=== PATIENT | female | born 1930 | race Two or more races ===

== ENCOUNTER 2016-11-07 11:47 | Inpatient (IN) | payer MEDICARE, MEDICAID ==
[~2016-11-07] VITALS: Ht 165.1 cm; Wt 67.1 kg
--- NOTE | 2016-11-07 12:00 | NUR ---
BBPA FROM [facility] FOR ABDOMINAL PAIN, MOSTLY RLQ x 1 DAY. PATIENT IS AWAKE, HOWEVER CONFUSED. APPEARS IN NO APPARENT DISTRESS. RESPIRATION EVEN AND UNLABORED. SKIN IS WARM TO TOUCH AND NON DIAPHORETIC,. AFEBRILE. VSS
[2016-11-07 12:24] LABS: BASOPHILS # (AUTO) 0.6 /CMM (0.0-0.2); BASOPHILS % (AUTO) 4.3 % (0.0-2.0); BILIRUBIN,URINE Negative (NEGATIVE); BLOOD, URINE Moderate Ery/uL (NEGATIVE); COLOR,URINE Yellow (YELLOW); EOSINOPHILS % (AUTO) 0.1 % (0.0-6.0); HEMATOCRIT 47 % (33-45); HEMOGLOBIN 15.6 g/dL (11.5-14.8); KETONES,URINE Negative (NEGATIVE); LEUKOCYTE ESTERASE ,URINE Negative (NEGATIVE); LYMPHOCYTES # (AUTO) 0.7 /CMM (0.8-4.8); LYMPHOCYTES % (AUTO) 5.3 % (20.0-44.0); MEAN CORPUSCULAR HEMOGLOBIN 28 PG (26.0-33.0); MEAN CORPUSCULAR HGB CONC 33 g/dl (31.0-36.0); MEAN CORPUSCULAR VOLUME 86 fL (82-100); MONOCYTES # (AUTO) 1.3 /CMM (0.1-1.30); MONOCYTES % (AUTO) 9.7 % (2.0-12.0); NEUTROPHILS % (AUTO) 80.6 % (43.0-81.0); NITRITE, URINE Negative (NEGATIVE); PH,URINE 6.5 (5.0-8.0); PLATELET COUNT (AUTO) 255 /CMM (150-450); PROTEIN,URINE Negative (NEGATIVE); RDW COEFFICIENT OF VARIATION 13.7 (11.5-15.0); RED BLOOD CELL COUNT(AUTO) 5.53 MIL/uL (4.0-5.2); UGLUCOSE Negative (NEGATIVE); UROBILINOGEN,URINE 0.2 EU/dL (0.2); WHITE BLOOD COUNT (AUTO) 13.6 K/uL (4.3-11.0)
[2016-11-07 12:25] LABS: APPEARANCE,URINE SLIGHTLY HAZY (CLEAR)
--- NOTE | 2016-11-07 12:25 | NUR ---
URINE SAMPLE SENT TO LAB
[2016-11-07 12:32] LABS: CALCIUM, SERUM 8.6 mg/dL (8.5-10.1); CARBON DIOXIDE 30 mmol/L (21-32); CHLORIDE 101 mmol/L (98-107); CREATININE 1.3 mg/dL (0.6-1.3); GLUCOSE 118 mg/dL (74-106); POTASSIUM 3.9 mmol/L (3.5-5.1); SODIUM SERUM 138 mmol/L (136-145); UREA NITROGEN, BLOOD 24 mg/dL (7-18)
[2016-11-07 12:34] LABS: RBC,URINE 21-50 /HPF (0-2)
[2016-11-07 12:35] LABS: BACTERIA,URINE None seen /HPF (None Seen); SQUAMOUS EPITHELIAL CELL,UR Few /HPF (None Seen)
[2016-11-07 12:38] LABS: ALANINE AMINOTRANSFERASE 35 U/L (12-78); ALBUMIN 2.6 g/dL (3.4-5.0); ALKALINE PHOSPHATASE 115 U/L (46-116); ASPARTATE AMINOTRANSFERASE 34 U/L (15-37); BILIRUBIN,DIRECT 0.2 mg/dL (0.0-0.2); BILIRUBIN,TOTAL 0.5 mg/dL (0.2-1.0); LIPASE 82 U/L (73-393)
--- NOTE | 2016-11-07 13:35 | NUR ---
PT IS BACK FROM CT
[2016-11-07] MEDS ORDERED: VENL37.55 PO (13:36)
[2016-11-07] MEDS ORDERED: ACET-868 PO (13:36)
[2016-11-07] MEDS ORDERED: ASPI81TA2 PO (13:36)
[2016-11-07] MEDS ORDERED: AMLO2.5T2 PO (13:36)
[2016-11-07] MEDS ORDERED: OMEP20CA10 PO (13:36)
[2016-11-07] MEDS ORDERED: ATOR10TA PO (13:36)
[2016-11-07] MEDS ORDERED: MIRT15TA PO (13:36)
[2016-11-07] MEDS ORDERED: MAG30ORA PO (13:36)
[2016-11-07] MEDS ORDERED: ONDA4TAB5 PO (13:36)
[2016-11-07] MEDS ORDERED: CHOL100044 PO (13:36)
[2016-11-07] MEDS ORDERED: MAGN400O6 PO (13:36)
[2016-11-07] MEDS ORDERED: DEXT15DR6 EACHEYE (13:36)
[2016-11-07] MEDS ORDERED: SENN8.6T6 PO (13:37)
--- NOTE | 2016-11-07 15:15 | NUR ---
Patient is resting comfortably in bed with eyes closed. Easily aroused. VSS
--- NOTE | 2016-11-07 15:25 | NUR ---
REPORT GIVEN TO STEFAN PANDYA FOR DEVIKA
--- NOTE | 2016-11-07 15:50 | NUR ---
MS RN OPENING NOTES RECEIVED PATIENT FROM ER VIA GURNEY. PATIENT IN STABLE CONDITION, ALERT AND ORIENTED X 2-3, FAMILY AT BEDSIDE. NO ACUTE DISTRESS, NO SOB NOTED. DENIES ANY PAIN AT THE MOMENT. AWAITING FOR MD ADMITTING ORDERS. KEPT PATIENT SAFE AND COMFORTABLE. BED IN LOW POSITION, LOCKED, SIDERAILS UPX2, CALL LIGHT IN REACH. WILL CONTINUE TO MONITOR ACCORDINGLY.
[2016-11-07 16:00] VITALS: BP 120/70
[2016-11-07 18:09] LABS: TROPONIN I < 0.017 ng/mL (0.00-0.056)
--- NOTE | 2016-11-07 19:00 | NUR ---
RN NOTES DR LOZANO ON BEDSIDE, NEW ORDERS NOTED AND CARRIED OUT.
--- NOTE | 2016-11-07 19:10 | NUR ---
RN NOTES PATIENT ON BED RESTING. NO ACUTE DISTRESS, NO SOB NOTED. ALL NEEDS ATTENDED AND PROVIDED. KEPT PATIENT SAFE. ENDORSED TO SELF SEALING FUEL TANK REPAIRER RN FOR DEVIKA.
--- NOTE | 2016-11-07 19:30 | NUR ---
MS RN INITIAL NOTES PT RECEIVED IN BED, A/O X2-3 WITH MOMENTS OF CONFUSION. SO SIGNS OR SOB OR DISTRESS. ON 2L NC BREATHING EVENLY AND UNLABORED. IV ACCESS INTACT AND PATENT. D5 1/2 NS WAS STARTED AT 50 ML/HR. PT IS NPO. COMPLAINTS OF NAUSEA, ZOFRAN IS TO BE GIVEN. BED IS IN LOW AND LOCKED POSITION, CALL LIGHT WITHIN REACH. WILL CONTINUE TO MONITOR PT.
[2016-11-07 20:00] VITALS: BP 151/94
[2016-11-07 20:14] LABS: AMYLASE 38 U/L (25-115); LIPASE 79 U/L (73-393)
--- NOTE | 2016-11-08 06:16 | NUR ---
MS RN CLOSING NOTES PT IS IN BED A/O X 2 FORGETFUL, WATCHING TV. PT IS BREATHING EVENLY AND UNLABORED ON NC 2L. NO SIGNS OF SOB OR DISTRESS. NPO STATUS MAINTAINED. BED IS IN LOW AND LOCKED POSITION, CALL LIGHT WITHIN REACH. WILL ENDORSE TO DAY SHIFT
--- NOTE | 2016-11-08 07:20 | NUR ---
RN OPENING NOTES RECEIVED PATIENT IN BED SLEEPING, AROUSES EASILY, A/O X2-3 WITH MOMENTS OF CONFUSION. NO ACUTE DISTRESS, NO SOB NOTED. ON 2L NC BREATHING EVENLY AND UNLABORED. IV ACCESS INTACT AND PATENT WITH D5 1/2 NS AT 50 ML/HR INFUSING. BED IN LOW AND LOCKED POSITION, CALL LIGHT WITHIN REACH. WILL CONTINUE TO MONITOR ACCORDINGLY.
[2016-11-08 07:35] LABS: BASOPHILS % (AUTO) 0.2 % (0.0-2.0); EOSINOPHILS % (AUTO) 0.1 % (0.0-6.0); HEMATOCRIT 44 % (33-45); HEMOGLOBIN 14.2 g/dL (11.5-14.8); LYMPHOCYTES # (AUTO) 0.7 /CMM (0.8-4.8); LYMPHOCYTES % (AUTO) 6.1 % (20.0-44.0); MEAN CORPUSCULAR HEMOGLOBIN 28 PG (26.0-33.0); MEAN CORPUSCULAR HGB CONC 32 g/dl (31.0-36.0); MEAN CORPUSCULAR VOLUME 87 fL (82-100); MONOCYTES # (AUTO) 1.3 /CMM (0.1-1.30); MONOCYTES % (AUTO) 11.4 % (2.0-12.0); NEUTROPHILS # (AUTO) 9.4 /CMM (1.8-8.9); NEUTROPHILS % (AUTO) 82.2 % (43.0-81.0); PLATELET COUNT (AUTO) 244 /CMM (150-450); RDW COEFFICIENT OF VARIATION 14.8 (11.5-15.0); RED BLOOD CELL COUNT(AUTO) 5.01 MIL/uL (4.0-5.2); WHITE BLOOD COUNT (AUTO) 11.4 K/uL (4.3-11.0)
[2016-11-08 08:00] VITALS: BP 146/65
[2016-11-08 08:06] LABS: ALBUMIN 2.3 g/dL (3.4-5.0); CALCIUM, SERUM 8.4 mg/dL (8.5-10.1); CARBON DIOXIDE 27 mmol/L (21-32); CHLORIDE 107 mmol/L (98-107); CREATININE 1.2 mg/dL (0.6-1.3); GLUCOSE 116 mg/dL (74-106); POTASSIUM 4.3 mmol/L (3.5-5.1); SODIUM SERUM 143 mmol/L (136-145); UREA NITROGEN, BLOOD 25 mg/dL (7-18)
[2016-11-08 08:10] LABS: CHOLESTEROL 176 mg/dL (<200); HDL CHOLESTEROL 60 mg/dL (40-60); LDL 94 mg/dL (0-99); PREALBUMIN 11.1 MG/DL (18.0-35.7); TRIGLYCERIDES 61 mg/dL (30-150)
[2016-11-08 16:00] VITALS: BP_SYST 149; BP_SYST 160; BP_DIAS 89
--- NOTE | 2016-11-08 16:00 | NUR ---
RN NOTES FLEET ENEMA GIVEN ORDERED, NO BM NOTED. WILL CONTINUE TO MONITOR ACCORDINGLY.
--- NOTE | 2016-11-08 19:30 | NUR ---
RN NOTES PATIENT IN BED RESTING. NO ACUTE DISTRESS, NO SOB NOTED. NO S/S OF PAIN OR DISCOMFORT. ALL NEEDS ATTENDED AND PROVIDED. KEPT PATIENT SAFE AND COMFORTABLE. BED IN LOW POSITION, LOCKED, SIDERAILS UP X2. CALL LIGHT IN REACH. ENDORSED TO CATALYST CONCENTRATION OPERATOR RN FOR DEVIKA.
--- NOTE | 2016-11-08 19:30 | NUR ---
MS RN INITIAL NOTES PT RECEIVED IN BED, A/O X2-3 WITHDRAWN, STATING THAT I TOOK HER CHILDREN AWAY FROM HER. NO SIGNS OR SOB OR DISTRESS. HAS NASAL CANULA IN HER HAND AND WONT LET GO, NEW ONE TO BE GIVEN. IV ACCESS INTACT AND PATENT. WITH D5 1/2 NS AT 50 ML/HR. PT IS NOW ON CLEAR LIQUIDS. BED IS IN LOW AND LOCKED POSITION, CALL LIGHT WITHIN REACH. WILL CONTINUE TO MONITOR PT.
[2016-11-08 20:00] VITALS: BP 142/95
[2016-11-08 20:03] VITALS: BP 142/95
--- NOTE | 2016-11-09 06:15 | NUR ---
MS RN CLOSING NOTES PT IS IN BED A/O X 1 FORGETFUL. PT IS BREATHING EVENLY AND UNLABORED ON NC 2L. NO SIGNS OF SOB OR DISTRESS. NOW ON A CLEAR LIQUID DIET. BED IS IN LOW AND LOCKED POSITION, CALL LIGHT WITHIN REACH. WILL ENDORSE TO DAY SHIFT
--- NOTE | 2016-11-09 07:13 | NUR ---
MS RN OPENING NOTE RECEIVED REPORT ON TH PATIENT. PATIENT IS RESTING IN BED COMFORTABLY WITH THE EYES CLOSED. BED IS LOCKED, IN LOWEST POSITION, SIDE RAILS UP X 3, BD ALARM IS ON. PRESENTS WITH NON-LABORED BREATHING ON 2 L O2. WILL RETURN TO REASSESS.
[2016-11-09 08:00] VITALS: BP 129/87
--- NOTE | 2016-11-09 11:22 | NUR ---
MS RN NOTE DVT PUMPS ORDERED AND DELIVERED FROM [facility]. ATTEMPTED TO PLACE ON THE PATIENT. PATIENT REFUSED. SCDS AT THE BEDSIDE. WILL ATTEMPT AGAIN LATER.
--- NOTE | 2016-11-09 12:50 | NUR ---
MS RN NOTE PLACED SCDs ON. PATIENT COMPLIED.
--- NOTE | 2016-11-09 12:51 | NUR ---
MS RN NOTE DR. LOZANO AT THE BEDSIDE. RN REPORTED TO MD THE POOR APPETITE STATUS AND PATIENT'S REFUSAL TO EAT. GASTROINTEROLOGY CONSULT WITH DR. HINTON AND ST DORCAS SORENSON ORDERED BY DR. LOZANO.
--- NOTE | 2016-11-09 15:21 | NUR ---
WOUND CARE CONSULT: PT PRESENTS WITH INTACT SKIN AND INCONTINENCE. RECOMMENDATIONS MADE FOR SKIN PROTECTION. DISCUSSED WITH NURSING STAFF. PT ON EDITH ISOFLEX LOW AIRLOSS BED. ALL SKIN PROTECTION MEASURES IN PLACE. WILL SEE PRN. IN AGREEMENT WITH PLAN OF CARE.
[2016-11-09 16:59] VITALS: BP 142/86
--- NOTE | 2016-11-09 18:45 | NUR ---
MS RN CLOSING NOTE PATIENT IS RESTING IN BED COMFORTABLY WITH EYES CLOSED. BED IS LOCKED IN LOWEST POSITION, SIDE RAILS UP X3 BED ALARM ON. IC FLUIDS RUNNING ORDERED. PATIENT'S VS WNL. DENIES PAIN AT THIS TIME. WILL ENDORSE TO TO YARN HANDLER FO DEVIKA.
[2016-11-09 18:58] VITALS: BP 142/86
--- NOTE | 2016-11-09 19:40 | NUR ---
MS RN INITIAL NOTES PT RECEIVED IN BED, A/O X2-3 WITHDRAWN, SLEEPING BUT EASILY AROUSED. NO SIGNS OR SOB OR DISTRESS. IV ACCESS INTACT AND PATENT. WITH D5 1/2 NS AT 50 ML/HR. PT IS NOW ON CLEAR LIQUIDS. BED IS IN LOW AND LOCKED POSITION, CALL LIGHT WITHIN REACH. WILL CONTINUE TO MONITOR PT.
[2016-11-09 20:00] VITALS: BP 137/82
--- NOTE | 2016-11-09 20:20 | NUR ---
TEMP 100.3. COOLING MEASURES WERE INITIATED. HR 144. PLACED ON TELE MONITOR FOR OBSERVATION
--- NOTE | 2016-11-09 21:00 | NUR ---
PT REFUSING TO TAKE ALL HER MEDS AFTER THEY HAVE BEEN CRUSHED IN APPLE SAUCE
--- NOTE | 2016-11-09 21:25 | NUR ---
PT TEMP REMAINS THE SAME. DR. LOZANO WAS CONTACTED. CHEST XRAY, BLOOD AND URINE CULTURE ORDERED.
--- NOTE | 2016-11-09 22:00 | NUR ---
CHEST XRAY COMPLETE
--- NOTE | 2016-11-09 22:31 | NUR ---
BLOOD CULTURE COLLECTED
--- NOTE | 2016-11-09 23:03 | NUR ---
URINE SAMPLE COLLECTED VIA STRAIGHT CATH
--- NOTE | 2016-11-10 06:13 | NUR ---
MS RN CLOSING NOTES PT IS IN BED A/O X 1 FORGETFUL. PT IS BREATHING EVENLY AND UNLABORED ON NC 2L. NO SIGNS OF SOB OR DISTRESS. NPO DUE TO POSSIBLE PROCEDURE. BED IS IN LOW AND LOCKED POSITION, CALL LIGHT WITHIN REACH. WILL ENDORSE TO DAY SHIFT
--- NOTE | 2016-11-10 07:20 | NUR ---
RN NOTES PT IS IN BED A/O X 1 FORGETFUL, CONFUSED EASILY AROUSABLE DURING CARE, ABLE TO MAKE NEEDS KNOWN. RESPIRATIONS EVEN AND UNLABORED. NO SIGNS OF SOB OR DISTRESS. NO APPARENT PAIN OR DISCOMFORT NOTED, NO FACIAL GRIMACING OR GUARDED MOVEMENT NOTED. NPO DUE TO POSSIBLE PROCEDURE. BED IS IN LOW AND LOCKED POSITION, CALL LIGHT WITHIN REACH. WILL CONTINUE TO MONITOR
[2016-11-10 08:00] VITALS: BP 152/95
[2016-11-10 08:10] LABS: CANCER AG, 125 90.5 U/mL (0.0-38.1); CARCINOEMBRYONIC AG (CEA) 3.5 ng/mL (0.0-4.7)
--- NOTE | 2016-11-10 10:09 | NUR ---
RN NOTES PLACED CALL TO DR. AGEE, PT ON SENIOR ENERGY MARKET COORDINATOR FOR OBSERVATION, NOTED WITH UNCONTROLLED AFIB HR IN 150'S, WILL AWAIT CALL BACK FOR FURTHER ORDERS
--- NOTE | 2016-11-10 10:56 | NUR ---
RN NOTES CALLED DR. AGEE TO NOTIFY OF CONTINUED UNCONTROLLED AFIB HR IN 150'S WILL CONTINUE TO MONITOR AT THIS TIME AND AWAIT ANY FURTHER ORDERS
[2016-11-10 12:23] VITALS: BP 134/85
--- NOTE | 2016-11-10 12:35 | NUR ---
RN NOTES BLADDER SCAN DONE NOTED WITH >941 ML, STRAIGHT CATH DONE 650CC OUT WILL CONTINUE TO MONITOR FOR URINARY RETENTION ORDERED Addendum: 11/10/16 at 1306 by ABISAI SHER RN Amended: Links added.
[2016-11-10 13:11] VITALS: BP 111/70
--- NOTE | 2016-11-10 13:43 | NUR ---
RN NOTES SEEN AND EXAMINED BY DR. AGEE, NOTIFIED OF RESIDUAL AMOUNT OF STRAIGHT CATH, PER MD CONTINUE TO MONITOR
[2016-11-10 16:00] VITALS: BP 146/78
--- NOTE | 2016-11-10 18:48 | NUR ---
RN NOTES BLADDER SCAN DONE ORDERED RESIDUAL NOTED >667 CC, STRAIGHT CATH DONE ORDERED NOTED WITH 670 CC OF DARK CLOUDY URINE, AWARE, PT TO CONTINUE TO HAVE BLADDER SCAN Q6H NO BURGESS CATHETER AT THIS TIME PER DR. AGEE, WILL CONTINUE TO MONITOR FOR URINARY RETENTION AND ENDORSE TO NEXT SHIFT FOR CONTINUITY OF CARE Addendum: 11/10/16 at 1850 by ABISAI SHER RN Amended: Links added.
--- NOTE | 2016-11-10 19:30 | NUR ---
TELERN HALFLY AWAKE, FAMILY AT BEDSIDE. SR ON THE MONITOR. NO SOB . SATURATION ON RA 95%. SPOKE TO FAMILY REGARDING PLAN OF CARE AND MEDICATION REGIMEN. NOT AWARE EGD WAS CANCELLED TODAY SECONDARY TO CHANGE OF MEDICAL STATUS. NO ORDER YET TO WHEN EGD WILL BE, FAMILY WANTS TO BE NOTIFIED. V/S STABLE, NO NEEDS FOR NOW. CONTINUED MONITORING.
--- NOTE | 2016-11-10 19:30 | NUR ---
RN NOTES PT IS IN BED A/O X 1 FORGETFUL, CONFUSED EASILY AROUSABLE DURING CARE, ABLE TO MAKE NEEDS KNOWN. RESPIRATIONS EVEN AND UNLABORED. NO SIGNS OF SOB OR DISTRESS. NO APPARENT PAIN OR DISCOMFORT NOTED, NO FACIAL GRIMACING OR GUARDED MOVEMENT NOTED. PATIENT MONITORED FOR URINARY RETENTION ORDERED, ENDORSED TO NEXT SHIFT ORDERED.PT ON MEAT CLERK ORDERED NOTED WITH SINUS RHYTHM HR 74. BED IS IN LOW AND LOCKED POSITION, CALL LIGHT WITHIN REACH. ENDORSED TO NEXT SHIFT FOR CONTINUITY OF CARE
[2016-11-10 20:00] VITALS: BP_SYST 123; BP_SYST 126; BP_DIAS 83
--- NOTE | 2016-11-10 22:15 | NUR ---
TELERN EASILY AROUSABLE, DUE MEDS ADMINISTERED. NO DIFFICULTY SWALLOWING. ABLE TO COMMUNICATE ALTHOUGH LIMITED. HOB 45 DEGREES AT ALL TIMES. REPOSITIONED FOR COMFORT. OUTPUT MONITORED. PRESENT IVF INFUSING WELL. LEVAQUIN IVPB STARTED.
[2016-11-11] VITALS: BP 118/79
--- NOTE | 2016-11-11 00:35 | NUR ---
TELERN I/O CATH 450 OUT. REMAINS SR ON THE MONITOR
[2016-11-11 04:00] VITALS: BP 117/61
[2016-11-11 04:19] VITALS: BP 117/61
--- NOTE | 2016-11-11 06:00 | NUR ---
TELERN HAD GOOD AMOUNT OF SLEEP. BLADDER SCAN 450 IN AN OUT CATH WAS 500.
--- NOTE | 2016-11-11 07:27 | NUR ---
RN NOTES PATIENT AWAKE ALERT AND VERBALLY RESPONSIVE ABLE TO MAKE NEEDS KNOWN. RESPIRATIONS EVEN AND UNLABORED, CONTINUES ON PAIN MANAGEMENT WITH EFFECTIVENESS. IV ACCESS PATENT AND INTACT NO REDNESS OR INFILTRATION NOTED. PATIENT COMFORTABLE, CALL LIGHT WITHIN EASY REACH, WILL CONTINUE TO MONITOR
[2016-11-11 07:43] LABS: BASOPHILS % (AUTO) 0.3 % (0.0-2.0); EOSINOPHILS # (AUTO) 0.1 /CMM (0.0-0.7); EOSINOPHILS % (AUTO) 1.7 % (0.0-6.0); HEMATOCRIT 41 % (33-45); HEMOGLOBIN 13.2 g/dL (11.5-14.8); LYMPHOCYTES # (AUTO) 1.2 /CMM (0.8-4.8); LYMPHOCYTES % (AUTO) 15.1 % (20.0-44.0); MEAN CORPUSCULAR HEMOGLOBIN 28 PG (26.0-33.0); MEAN CORPUSCULAR HGB CONC 33 g/dl (31.0-36.0); MEAN CORPUSCULAR VOLUME 87 fL (82-100); MONOCYTES # (AUTO) 0.9 /CMM (0.1-1.30); MONOCYTES % (AUTO) 11.6 % (2.0-12.0); NEUTROPHILS # (AUTO) 5.8 /CMM (1.8-8.9); NEUTROPHILS % (AUTO) 71.3 % (43.0-81.0); PLATELET COUNT (AUTO) 257 /CMM (150-450); RDW COEFFICIENT OF VARIATION 14.6 (11.5-15.0); RED BLOOD CELL COUNT(AUTO) 4.69 MIL/uL (4.0-5.2); WHITE BLOOD COUNT (AUTO) 8.1 K/uL (4.3-11.0)
[2016-11-11 08:00] VITALS: BP 124/69
--- NOTE | 2016-11-11 12:38 | NUR ---
RN NOTES BLADDER SCAN DONE ORDERED. NOTED WITH RESIDUAL OF >617 CC. STRAIGHT CATH DONE PER MD ORDER. NOTED WITH OUTPUT WITH 600CC. WILL CONTINUE TO MONITOR FOR URINARY RETENTION AND NOTIFY MD. Addendum: 11/11/16 at 1241 by TAE LEWIS RN Amended: Links added.
--- NOTE | 2016-11-11 13:56 | NUR ---
RN NOTES PATIENT SEEN AND EVALUATED BY DR AGEE, PER DR. AGEE TO CONTINUE INTERMITTENT CATHETERIZATION NO BURGESS CATHETER, NOTIFIED MD OF NEED TO CATHETERIZATION Q6H X24 HOURS PER MD NO BURGESS CATHETER AT THIS TIME WILL CONTINUE TO MONITOR FOR URINARY RETENTION ORDERED
[2016-11-11 16:00] VITALS: BP 124/76
--- NOTE | 2016-11-11 18:48 | NUR ---
RN NOTE BLADDER SCAN DONE NOTED WITH RESIDUAL OF > 375CC, STRAIGHT CATH ORDERED PER , 320C OUTPUT NOTED, WILL CONTINUE TO MONITOR FOR URINARY RETENTION ORDERED Addendum: 11/11/16 at 1849 by ABISAI SHER RN Amended: Links added.
--- NOTE | 2016-11-11 19:25 | NUR ---
RN NOTES PT IS IN BED A/O X 1 FORGETFUL, CONFUSED EASILY AROUSABLE DURING CARE, ABLE TO MAKE NEEDS KNOWN. RESPIRATIONS EVEN AND UNLABORED. NO SIGNS OF SOB OR DISTRESS. NO APPARENT PAIN OR DISCOMFORT NOTED, NO FACIAL GRIMACING OR GUARDED MOVEMENT NOTED. PATIENT MONITORED FOR URINARY RETENTION ORDERED, ENDORSED TO NEXT SHIFT ORDERED. BED IS IN LOW AND LOCKED POSITION, CALL LIGHT WITHIN REACH. ENDORSED TO NEXT SHIFT FOR CONTINUITY OF CARE
--- NOTE | 2016-11-11 19:30 | NUR ---
MS RN INITIAL NOTES PT RECEIVED IN BED, A/O X2-3 VERY FORGETFUL, SLEEPING BUT EASILY AROUSED. NO SIGNS OR SOB OR DISTRESS. IV ACCESS INTACT AND PATENT. WITH D5 1/2 NS AT 50 ML/HR. PT IS NOW ON PUREED. BED IS IN LOW AND LOCKED POSITION, CALL LIGHT WITHIN REACH. WILL CONTINUE TO MONITOR PT.
[2016-11-11 20:00] VITALS: BP 122/75
--- NOTE | 2016-11-12 | NUR ---
MS RN NOTES BLADDER SCAN WAS DONE-- 700 CC WAS REMOVED VIA STRAIGHT CATH
--- NOTE | 2016-11-12 06:00 | NUR ---
MS RN NOTES BLADDER SCAN SHOWED 923 CC- 900 CC WAS REMOVED VIA STRAIGHT CATH
--- NOTE | 2016-11-12 07:41 | NUR ---
MS/RN OPENING NOTE PATIENT RECEIVED IN BED IN STABLE CONDITION. ALERT AND ORIENTED TIMES 2. ABLE TO MAKES NEEDS KNOWN. NO SIGNS OF ACUTE DISTRESS. NO COMPLAIN OF PAIN OR DISCOMFORT. ALL NEEDS ATTENDED TO. CALL LIGHT WITHIN REACH. WILL CONTINUE TO MONITOR TO ENSURE SAFETY.
--- NOTE | 2016-11-12 07:53 | NUR ---
MS RN CLOSING NOTES PT IS IN BED CONFUSED. NO SIGNS OF SOB OR DISTRESS. BLADDER SCANS WERE PERFORMED. IV WAS PULLED OUT AT THE CHANGE OF SHIFT, ENDORSED TO AM SHIFT. MOM WAS ADMINISTERED. BED IS IN LOW AND LOCKED POSITION, CALL LIGHT IS WITHIN REACH. WILL ENDORSE TO DAY SHIFT
[2016-11-12 08:00] VITALS: BP 133/92
--- NOTE | 2016-11-12 15:26 | NUR ---
MS/RN SEEN BY DR JENIFFER TIPTON PATIENT SEEN BY DR SWIFT WITH ORDER TO INSERT BURGESS CATHETER. TOLERATED WELL.
[2016-11-12 16:00] VITALS: BP 130/89
--- NOTE | 2016-11-12 17:48 | NUR ---
MS/RN YADIRA PATIENT REFUSED ELIQUIS AT 5PM. DR AGEE AWARE, DR AGEE SPOKE WITH PATIENT AND AGREES TO TAKE ELIQUIS.
--- NOTE | 2016-11-12 18:21 | NUR ---
MS/RN CLOSING NOTE PATIENT IN BED, AWAKE IN STABLE CONDITION. ALERT AND ORIENTED TIMES 1-2. NOTED WITH EPISODES OF CONFUSION. NO SIGNS OF ACUTE DISTRESS. NO COMPLAIN OF PAIN OR DISCOMFORT. ALL NEEDS ATTENDED TO. CALL LIGHT WITHIN REACH. WILL ENDORSE TO NEXT SHIFT FOR CONTINUITY OF CARE.
--- NOTE | 2016-11-12 19:15 | NUR ---
MS?ASPHALT DISTRIBUTOR OPERATOR; RECEIVED PT 'S REPORTS FROM THE DAY SHIFT RN FOR CONTINUITY OF CARE. PT AT THIS TIME IN BED AWAKE ABLE TO TALK BUT WITH CONFUSION. WITH O2 2L NC ON. BREATHING NON LABORED. WITH FC INTACT WITH YELLOW URINE COLOR. IVF OF 1/2 NS AT 50 ML PER HOUR ON PROGRESS. BED ON LOWER POSITION AND LOCKED FOR SAFETY. SIDE RAILS ARE UP FOR SAFETY. CALL LIGHT WITHIN REACH.
[2016-11-12 20:00] VITALS: BP 129/81
--- NOTE | 2016-11-13 05:15 | NUR ---
MS/COPYWRITER; PT PULLED OUT IV . NEW HL INSERTED ON LFA # 22 IVF RESUMED.
--- NOTE | 2016-11-13 07:00 | NUR ---
MS/NURSING CARE PARTNER; CHARGE NURSE MADE AWARE OF TH FC. AND SHE SAID TO REMOVE IT. FC DC AT 0600 WITH 750 ML YELLOW BUT CLOUDY. WILL ENDORSE TO THE DAY SHIFT NURSE.
--- NOTE | 2016-11-13 07:15 | NUR ---
MS RN OPENING NOTES RECEIVED PT FROM NIGHTSHIFT NURSE IN STABLE CONDITION. PT IS A/O X1 AND CONFUSED. NO SOB OR SIGNS OF DISTRESS NOTED. BREATHING IS EVEN AND UNLABORED. PT DENIES ANY PAIN AT THIS TIME. NO NAUSEA OR VOMITING REPORTED DURING THE NIGHT. BURGESS CATHETER WAS REMOVED THIS MORNING BY THE BULLET CASTING OPERATOR NURSE. THERE WAS A REPORTED 750CC OUTPUT FROM THE CATHETER. IV PRESENT ON LEFT AC 22G, INFUSING 1/2 NS @50ML/HR. PT IS TOLERATING INFUSION WELL. NO REDNESS OR SIGNS OF INFILTRATION NOTED. BED IN LOW LOCKED POSITION, SIDE RAILS UP X3, CALL LIGHT WITHIN REACH. WILL CONTINUE TO MONITOR
[2016-11-13 07:38] LABS: BASOPHILS % (AUTO) 0.6 % (0.0-2.0); EOSINOPHILS # (AUTO) 0.2 /CMM (0.0-0.7); EOSINOPHILS % (AUTO) 2.5 % (0.0-6.0); HEMATOCRIT 43 % (33-45); HEMOGLOBIN 14.1 g/dL (11.5-14.8); LYMPHOCYTES % (AUTO) 15.2 % (20.0-44.0); MEAN CORPUSCULAR HEMOGLOBIN 29 PG (26.0-33.0); MEAN CORPUSCULAR HGB CONC 33 g/dl (31.0-36.0); MEAN CORPUSCULAR VOLUME 87 fL (82-100); MONOCYTES # (AUTO) 0.9 /CMM (0.1-1.30); MONOCYTES % (AUTO) 12.6 % (2.0-12.0); NEUTROPHILS # (AUTO) 4.7 /CMM (1.8-8.9); NEUTROPHILS % (AUTO) 69.1 % (43.0-81.0); PLATELET COUNT (AUTO) 366 /CMM (150-450); RDW COEFFICIENT OF VARIATION 14.6 (11.5-15.0); RED BLOOD CELL COUNT(AUTO) 4.92 MIL/uL (4.0-5.2); WHITE BLOOD COUNT (AUTO) 6.8 K/uL (4.3-11.0)
[2016-11-13 07:41] LABS: CARBON DIOXIDE 31 mmol/L (21-32); CHLORIDE 103 mmol/L (98-107); CREATININE 0.8 mg/dL (0.6-1.3); GLUCOSE 89 mg/dL (74-106); POTASSIUM 3.3 mmol/L (3.5-5.1); SODIUM SERUM 141 mmol/L (136-145); UREA NITROGEN, BLOOD 10 mg/dL (7-18)
[2016-11-13 08:00] VITALS: BP 139/87
[2016-11-13 16:00] VITALS: BP 146/89
--- NOTE | 2016-11-13 18:20 | NUR ---
requested patient discharge back to [facility] [phone], spoke with admissions and faxed clinicals,SNF is aware of contact isolation ESBL urine.Patient accepted and ambulance pick up driver arranged for 7pm . Addendum: 11/13/16 at 2208 by STEVEN MONROE RN Amended: Links added.
--- NOTE | 2016-11-13 19:55 | NUR ---
MS DRAW FRAME TENDER NOTES PT WAS DISCHARGED FROM THE FACILITY IN STABLE CONDITION. PT LEFT VIA AMBULANCE TRANSPORT AND WAS TAKEN TO [facility]. REPORT WAS GIVEN TO JIE THE NURSING FORESTRY TECHNICAL OFFICER. DISCHARGE INSTRUCTIONS WERE DISCUSSED WITH JIE, SHE WAS ALSO INFORMED THAT THE PT WILL BE LEAVING WITH HER FC WHICH WAS PLACED TODAY DUE TO URINARY RETENTION. BURGESS CATHETER WAS PLACED PER HOSPITAL PROTOCOL. ALL DISCHARGE PAPERWORK WERE SIGNED BY MYSELF AND A FELLOW RN DUE TO PT'S MENTAL STATUS. PT'S BELONGINGS WERE SENT WITH AMBULANCE STAFF. ALL NEEDS WERE MET DURING SHIFT AND ORDERS CARRIED OUT ACCORDINGLY.
== END 2016-11-13 19:36 | DRG 388 ==
LOC: ER 11:48 → MED 15:17 → TELE 11-10 20:25 → MED 11-11 08:45
PROVIDERS: ADMIT Internal Medicine Hematology & Oncology; ATTEND Internal Medicine
DX: K56.41 Fecal impaction (principal); G93.40 Encephalopathy, unspecified; I48.92 Unspecified atrial flutter; N13.30 Unspecified hydronephrosis; F33.9 Major depressive disorder, recurrent, unspecified; G30.9 Alzheimer's disease, unspecified; F02.80 Dementia in other diseases classified elsewhere, unspecified severity, without behavioral disturbance, psychotic disturbance, mood disturbance, and anxiety; N13.4 Hydroureter; I48.0 Paroxysmal atrial fibrillation; R62.7 Adult failure to thrive; N28.1 Cyst of kidney, acquired; E78.5 Hyperlipidemia, unspecified; I25.10 Atherosclerotic heart disease of native coronary artery without angina pectoris; D72.829 Elevated white blood cell count, unspecified; M19.90 Unspecified osteoarthritis, unspecified site; Z87.891 Personal history of nicotine dependence; K44.9 Diaphragmatic hernia without obstruction or gangrene; I10 Essential (primary) hypertension; R19.09 Other intra-abdominal and pelvic swelling, mass and lump; R91.1 Solitary pulmonary nodule; R33.9 Retention of urine, unspecified; Z79.899 Other long term (current) drug therapy
CPT/HCPCS: 36415; 71010-TC; 76856-TC; 80048-TC; 80061-TC; 80076-TC; 81000-TC; 82040-TC; 82150-TC; 82378; 83690-TC; 83735-TC; 84100-TC; 84134-TC; 84443-TC; 84484-TC; 85025-TC; 86304; 87040-TC; 87081-TC; 87086-TC; 87186-TC; 92526; 92611-TC; 93307-TC; A4216; A4606; J1956; J2270; J2405; J3490; J7030; J7042; Q9967; Z7610

== ENCOUNTER 2016-11-20 10:51 | Inpatient (IN) | payer MEDICARE, MEDICAID ==
[~2016-11-20] VITALS: Ht 165.1 cm; Wt 54.0 kg
[~2016-11-20 10:51] MED LIST: ACET-868 PO; AMLO2.5T2 PO; ASPI81TA2 PO; ATOR10TA PO; CHOL100044 PO; DEXT15DR6 EACHEYE; MAG30ORA PO; MAGN400O6 PO; MIRT15TA PO; OMEP20CA10 PO; ONDA4TAB5 PO; SENN8.6T6 PO; VENL37.55 PO
--- NOTE | 2016-11-20 11:00 | NUR ---
PT BIBRA FROM SNF TO ER BED 14. PER REPORT, HERE FOR URINE RETENSION AND UTI. PT IS C/O "WEAKNESS." GOWNED AND PLACED ON MONITOR. STABLE VITALS AWAITING MD SORENSON.
--- NOTE | 2016-11-20 11:04 | NUR ---
DR HANNA AT BEDSIDE FOR EVAL.
--- NOTE | 2016-11-20 11:27 | NUR ---
RADIOLOGY AT BEDSIDE FOR PSYCH EVAL.
[2016-11-20 11:29] LABS: BASOPHILS # (AUTO) 0.1 /CMM (0.0-0.2); BASOPHILS % (AUTO) 0.6 % (0.0-2.0); EOSINOPHILS # (AUTO) 0.2 /CMM (0.0-0.7); EOSINOPHILS % (AUTO) 2.4 % (0.0-6.0); HEMATOCRIT 42 % (33-45); HEMOGLOBIN 13.9 g/dL (11.5-14.8); LYMPHOCYTES # (AUTO) 0.9 /CMM (0.8-4.8); LYMPHOCYTES % (AUTO) 9.5 % (20.0-44.0); MEAN CORPUSCULAR HEMOGLOBIN 28 PG (26.0-33.0); MEAN CORPUSCULAR HGB CONC 33 g/dl (31.0-36.0); MEAN CORPUSCULAR VOLUME 86 fL (82-100); MONOCYTES # (AUTO) 0.6 /CMM (0.1-1.30); MONOCYTES % (AUTO) 6.6 % (2.0-12.0); NEUTROPHILS # (AUTO) 7.7 /CMM (1.8-8.9); NEUTROPHILS % (AUTO) 80.9 % (43.0-81.0); PLATELET COUNT (AUTO) 521 /CMM (150-450); RDW COEFFICIENT OF VARIATION 13.7 (11.5-15.0); WHITE BLOOD COUNT (AUTO) 9.5 K/uL (4.3-11.0)
[2016-11-20] MEDS ORDERED: FAMO20TA8 PO (11:33)
[2016-11-20] MEDS ORDERED: ACET-868 PO (11:33)
[2016-11-20] MEDS ORDERED: POLY15DR40 EACHEYE (11:33)
[2016-11-20] MEDS ORDERED: HYDR-3326 PO (11:33)
[2016-11-20] MEDS ORDERED: NA P133E RC (11:33)
[2016-11-20] MEDS ORDERED: APIX2.5T PO (11:33)
[2016-11-20] MEDS ORDERED: DILT180C66 PO (11:33)
[2016-11-20 11:40] LABS: CALCIUM, SERUM 8.1 mg/dL (8.5-10.1); CARBON DIOXIDE 32 mmol/L (21-32); CHLORIDE 109 mmol/L (98-107); CREATININE 1.1 mg/dL (0.6-1.3); GLUCOSE 70 mg/dL (74-106); POTASSIUM 3.8 mmol/L (3.5-5.1); SODIUM SERUM 143 mmol/L (136-145); UREA NITROGEN, BLOOD 14 mg/dL (7-18)
[2016-11-20 11:43] LABS: INR 1.09 (0.87-1.13); PROTHROMBIN TIME 11.4 SECS (9.5-12.7)
[2016-11-20 11:46] LABS: ALANINE AMINOTRANSFERASE 36 U/L (12-78); ALBUMIN 2.3 g/dL (3.4-5.0); ALKALINE PHOSPHATASE 108 U/L (46-116); ASPARTATE AMINOTRANSFERASE 25 U/L (15-37); BILIRUBIN,DIRECT 0.1 mg/dL (0.0-0.2); BILIRUBIN,TOTAL 0.2 mg/dL (0.2-1.0); TOTAL PROTEIN, SERUM 6.3 g/dL (6.4-8.2)
[2016-11-20 11:48] LABS: TROPONIN I < 0.017 ng/mL (0.00-0.056)
[2016-11-20 11:55] LABS: APPEARANCE,URINE Turbid (CLEAR); BILIRUBIN,URINE Negative (NEGATIVE); BLOOD, URINE Moderate Ery/uL (NEGATIVE); COLOR,URINE Yellow (YELLOW); KETONES,URINE Negative (NEGATIVE); LEUKOCYTE ESTERASE ,URINE Moderate (NEGATIVE); NITRITE, URINE Negative (NEGATIVE); PH,URINE 7.5 (5.0-8.0); PROTEIN,URINE 100 mg/dl (NEGATIVE); UGLUCOSE Negative (NEGATIVE); UROBILINOGEN,URINE 0.2 EU/dL (0.2)
[2016-11-20 12:02] LABS: BACTERIA,URINE Moderate /HPF (None Seen); SQUAMOUS EPITHELIAL CELL,UR Few /HPF (None Seen); WBC,URINE 80-100 /HPF (0-3)
--- NOTE | 2016-11-20 12:16 | NUR ---
CALLED FOR MED SURG BED FOR PT ADMIT
--- NOTE | 2016-11-20 12:19 | NUR ---
CALLED DR LOZANO, LEFT MESSAGE TO CALL BACK
[2016-11-20] MEDS ORDERED: CEFTRIAXONE 1GM BAG (ER ONLY) 50 ML IV ONE (12:25)
[2016-11-20] MEDS ORDERED: CEFTRIAXONE 1GM BAG (ER ONLY) 1 GM/50 ML PIGGYBACK IV ONE (12:30)
[2016-11-20] MEDS ORDERED: VANCOMYCIN 1 GM in IV D5W 250 ML IV ONE (12:30)
--- NOTE | 2016-11-20 12:39 | NUR ---
CALLED [facility] FOR SECOND NOTICE. MESSAGE LEFT.
--- NOTE | 2016-11-20 12:54 | NUR ---
PATIENT ASSIGNED TO ROOM 327-1
--- NOTE | 2016-11-20 13:02 | NUR ---
REPORT GIVEN TO MICHELE. PT AWAITING TRANSFER TO FLOOR.
--- NOTE | 2016-11-20 13:55 | NUR ---
RN NOTES RECEIVED PATIENT FROM ER VIA GURMARTELL. PATIENT CAME FOR UTI. ALERT AND ORIENTED X 2, TO NAME AND PLACE. NO ACUTE DISTRESS, NO SOB NOTED. IV SITE INTACT AND PATENT. KEPT PATIENT SAFE AND COMFORTABLE. FAMILY AT BEDSIDE. AWAITING FOR DR LOZANO'S ADMITTING ORDERS. BED IN LOCKED, LOW POSITION, SIDERAILS UP X2. CALL LIGHT IN REACH. WILL CONTINUE TO MONITOR ACCORDINGLY.
--- NOTE | 2016-11-20 16:00 | NUR ---
RN NOTES PER DR LOZANO'S ORDER: DO BLADDER SCAN EVERY 6 HOURS. STRAIGHT CATHETER IF RESIDUAL > 500ML.
[2016-11-20] MEDS ORDERED: FEE PK DOSING 1 MIN EA MC ONE (16:44)
[2016-11-20] MEDS ORDERED: BISACODYL SUPP (10 MG) 10 MG/SUPP.RECT SUPP.RECT RC PRN (17:00)
--- NOTE | 2016-11-20 17:00 | NUR ---
RN NOTES BLADDER SCAN DONE, URINE RESIDUAL OF 306 ML. WILL CONTINUE TO MONITOR.
--- NOTE | 2016-11-20 19:00 | NUR ---
RN NOTES NO SIGNIFICANT CHANGE IN PATIENT'S CONDITION. NO ACUTE DISTRESS, NO SOB NOTED. ALL NEEDS ATTENDED AND PROVIDED. KEPT PATIENT SAFE AND COMFORTABLE. BED LOCKED, LOW POSITION, SIDERAILS UP X2. CALL LIGHT IN REACH. ENDORSED TO STONECUTTER ASSISTANT RN FOR DEVIKA.
--- NOTE | 2016-11-20 19:30 | NUR ---
RN NOTES RECEIVED PATIENT IN BED WITH EYES CLOSED; EASILY AROUSABLE. AO X 1 , ABLE TO MAKE NEEDS KNOWN. NO ACUTE DISTRESS NOTED. NO SIGNS OF PAIN NOTED. IV SITE PATENT, INTACT; FLUSHED. SAFETY REMINDERS GIVEN. ON LOW BED WITH BILATERAL UPPER SIDE RAILS UP. CALL LIGHT WITHIN EASY REACH. WILL CONTINUE TO MONITOR.
[2016-11-20 20:00] VITALS: BP 130/85
[2016-11-20] MEDS ORDERED: NA PHOS,M-B/NA PHOS,DI-BA 1 EA ENEMA RC PRN ×2 (20:00→22:30)
[2016-11-20] MEDS: POLYETHYLENE GLYCOL 3350 17 GM POWD.PACK PO SCH (21:53)
[2016-11-20] MEDS ORDERED: HYDROCODONE/APAP 5/325MG 1 EACH TABLET PO PRN (22:30)
[2016-11-20] MEDS ORDERED: ACETAMINOPHEN 325 MG TABLET PO PRN (22:30)
[2016-11-20] MEDS ORDERED: MAG HYDROX/AL HYDROX/SIMETH 30 ML UDC PO PRN (22:30)
[2016-11-20] MEDS ORDERED: MAGNESIUM HYDROXIDE 30 ML UDC PO PRN (22:30)
--- NOTE | 2016-11-21 06:14 | NUR ---
RN NOTES PATIENT ASLEEP, EASILY AROUSABLE. RESPIRATIONS EVEN. NO SIGNS OF PAIN NOTED. DUE MED GIVEN WITH NO ASE NOTED. NEEDS ATTENDED. SAFETY PRECAUTIONS AND COMFORT MEASURES IN PLACE. WILL GIVE REPORT TO DAY SHIFT FOR CONTINUITY OF CARE.
[2016-11-21] MEDS ORDERED: VANCOMYCIN 0.75 GM in IV D5W 250 ML IV SCH (07:00)
[2016-11-21 07:43] LABS: CALCIUM, SERUM 8.2 mg/dL (8.5-10.1); CARBON DIOXIDE 29 mmol/L (21-32); CHLORIDE 110 mmol/L (98-107); CREATININE 1.1 mg/dL (0.6-1.3); GLUCOSE 87 mg/dL (74-106); POTASSIUM 4.1 mmol/L (3.5-5.1); SODIUM SERUM 145 mmol/L (136-145); UREA NITROGEN, BLOOD 17 mg/dL (7-18)
[2016-11-21 08:00] VITALS: BP 115/73
[2016-11-21] MEDS ORDERED: POLYVINYL ALCOHOL 15 ML BOTTLE EACHEYE PRN (08:30)
[2016-11-21] MEDS: DOCUSATE SODIUM 100 MG CAPSULE PO SCH (10:53)
[2016-11-21] MEDS: CHOLECALCIFEROL 1,000 UNIT TABLET (VIT D3) PO SCH (10:53)
[2016-11-21] MEDS: FAMOTIDINE (20 MG) 20 MG TABLET PO SCH (10:54)
[2016-11-21] MEDS: VENLAFAXINE XR 37.5 MG CAP.SR.24H PO SCH (10:54)
[2016-11-21] MEDS: ACETAMINOPHEN 325 MG TABLET PO SCH (10:54)
[2016-11-21] MEDS: APIXABAN 2.5 MG TABLET PO SCH ×2 (10:55→18:57)
--- NOTE | 2016-11-21 11:00 | NUR ---
BLADDER SCAN DONE AFTER INCONTINENCY IN AM RESIDUAL 142 ML.PT. DENIES PRESSURE.
[2016-11-21] MEDS: CEFTRIAXONE 1 G in IV D5W 50 ML IV SCH (13:33)
[2016-11-21 16:00] VITALS: BP 127/80
--- NOTE | 2016-11-21 17:10 | NUR ---
BLADDER PALPATED.PT. DENIES PRESSURE.BLADDER SCAN DONE AND RESIDUAL NOTED 189 ML.PT ONLY HAD 3 INCONTINENT URINES.
[2016-11-21] MEDS: DILTIAZEM HCL CD 180 MG PO SCH (18:58)
[2016-11-21 20:00] VITALS: BP 110/80
[2016-11-21] MEDS: ATORVASTATIN 10 MG TABLET PO SCH (21:25)
[2016-11-21] MEDS: POLYETHYLENE GLYCOL 3350 17 GM POWD.PACK PO SCH (21:26)
[2016-11-21] MEDS: SENNOSIDES 8.6 MG TABLET PO SCH (21:26)
[2016-11-21] MEDS: MIRTAZAPINE 15 MG TABLET PO SCH (21:26)
--- NOTE | 2016-11-22 06:10 | NUR ---
RN NOTES PATIENT ASLEEP, EASILY AROUSABLE. RESPIRATIONS EVEN. NO SIGNS OF PAIN NOTED. DUE MED GIVEN WITH NO ASE NOTED. NEEDS ATTENDED. BLADDER SCANNED Q 56 HOURS. SAFETY PRECAUTIONS AND COMFORT MEASURES IN PLACE. WILL GIVE REPORT TO DAY SHIFT FOR CONTINUITY OF CARE. Addendum: 11/22/16 at 0611 by TEODORO VILLALOBOS RN BLADDER SCANNED Q 6 HOURS NOT Q 56 HOURS.
--- NOTE | 2016-11-22 07:22 | NUR ---
RN OPEN NOTES RECEIVED REPORT FROM ELEVATOR WORKER NURSE. PATIENT IS IN BED, WITH HER EYES CLOSED, OPEN HER EYES WITH A LIGHT TOUCH. NO SIGNS OF DISTRESS OR DISCOMFORT. BREATHING EVEN AND UNLABORED. IV SITE IS INTACT AND PATENT, NO SIGNS OF REDNESS OR INFILTRATION. BED IN LOW LOCKED POSITION WITH SIDE RAILS X2. CALL LIGHT WITHIN REACH. WILL CONTINUE TO MONITOR AND ASSESS PATIENT THOROUGH OUT MY SHIFT .
[2016-11-22 08:20] LABS: CALCIUM, SERUM 8.6 mg/dL (8.5-10.1); CARBON DIOXIDE 32 mmol/L (21-32); CHLORIDE 111 mmol/L (98-107); CREATININE 0.8 mg/dL (0.6-1.3); GLUCOSE 83 mg/dL (74-106); POTASSIUM 4.7 mmol/L (3.5-5.1); SODIUM SERUM 149 mmol/L (136-145); UREA NITROGEN, BLOOD 19 mg/dL (7-18)
[2016-11-22 08:38] VITALS: BP 135/81
[2016-11-22] MEDS: APIXABAN 2.5 MG TABLET PO SCH ×2 (08:59→16:47)
[2016-11-22] MEDS: DILTIAZEM HCL CD 180 MG PO SCH (09:00)
[2016-11-22] MEDS: DOCUSATE SODIUM 100 MG CAPSULE PO SCH (09:00)
[2016-11-22] MEDS: ACETAMINOPHEN 325 MG TABLET PO SCH (09:00)
[2016-11-22] MEDS: FAMOTIDINE (20 MG) 20 MG TABLET PO SCH (09:01)
[2016-11-22] MEDS: VENLAFAXINE XR 37.5 MG CAP.SR.24H PO SCH (09:01)
[2016-11-22] MEDS: CHOLECALCIFEROL 1,000 UNIT TABLET (VIT D3) PO SCH (09:01)
--- NOTE | 2016-11-22 11:19 | NUR ---
BLADDER SCAN COMPLETED AT 11AM. BLADDER SCAN SHOWS URINE VOLUME AT 612ML. PATIENT WAS STRIGHT CATH AT 11:12 WITH URINE OUTPUT OF 800ML. PATIENT TOLERATED PROCEDURE WELL
[2016-11-22] MEDS: CEFTRIAXONE 1 G in IV D5W 50 ML IV SCH (12:25)
[2016-11-22 17:07] VITALS: BP 123/71
--- NOTE | 2016-11-22 17:15 | NUR ---
BLADDER SCAN COMPLETED. BLADDER SCAN SHOWS 87ML VOLUME OF URINE. NO NEED FOR STRAIGHT CATH
[2016-11-22] MEDS ORDERED: MEROPENEM 500 MG in IV NS 0.9% 50 ML IV SCH (17:30)
[2016-11-22] MEDS: MEROPENEM 500 MG in IV NS 0.9% 50 ML IV SCH (18:15)
--- NOTE | 2016-11-22 18:45 | NUR ---
TIRE BLADDER MAKER NOTES PATIENT IS IN BED, AWAKE. ALERT AND ORIENTED TO SELF ONLY. PERIOD OF CONFUSION. NO SIGNS OF DISTRESS OR DISCOMFORT. BREATHING EVEN AND UNLABORED. IV SITE IS INTACT AND PATENT, NO SIGNS OF REDNESS OR INFILTRATION. ALL NURSING CARE ANTICIPATED. PATIENT KEPT CLEAN AND DRY. BLADDER SCAN Q6HR. BED IN LOW LOCKED POSITION WITH SIDE RAILS X2. CALL LIGHT WITHIN REACH. WILL ENDORSE TO FARM MACHINERY ERECTOR NURSE.
[2016-11-22 20:00] VITALS: BP 121/79
[2016-11-22] MEDS: ATORVASTATIN 10 MG TABLET PO SCH (21:29)
[2016-11-22] MEDS: POLYETHYLENE GLYCOL 3350 17 GM POWD.PACK PO SCH (21:29)
[2016-11-22] MEDS: MIRTAZAPINE 15 MG TABLET PO SCH (21:29)
[2016-11-22] MEDS: SENNOSIDES 8.6 MG TABLET PO SCH (21:29)
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
[2016-11-23 08:00] VITALS: BP 153/71
--- NOTE | 2016-11-23 08:00 | NUR ---
MS RN NOTES PATIENT IN BED RESTING NO SOB OR ACUTE DISTRESS NOTED. BED IN LOW LOCKED POSITION CALL LIGHT WITHIN REACH. PERIPHERAL IV ON LEFT AC INTACT PATENT. WILL CONTINUE TO MONITOR.
[2016-11-23] MEDS: VENLAFAXINE XR 37.5 MG CAP.SR.24H PO SCH (08:20)
[2016-11-23] MEDS: CHOLECALCIFEROL 1,000 UNIT TABLET (VIT D3) PO SCH (08:20)
[2016-11-23] MEDS: DILTIAZEM HCL CD 180 MG PO SCH (08:20)
[2016-11-23] MEDS: FAMOTIDINE (20 MG) 20 MG TABLET PO SCH (08:45)
[2016-11-23] MEDS: DOCUSATE SODIUM 100 MG CAPSULE PO SCH (08:45)
[2016-11-23] MEDS: ACETAMINOPHEN 325 MG TABLET PO SCH (08:46)
[2016-11-23] MEDS: MEROPENEM 500 MG in IV NS 0.9% 50 ML IV SCH ×2 (08:47→21:00)
--- NOTE | 2016-11-23 11:30 | NUR ---
MS RN NOTES PATIENT SCANNED WITH BLADDER SCANNER NOTES 750ML URIN. STRAIGHT CATHETERIZED 900ML OF URIN OUTPUT NOTED. WILL CONTINUE TO MONITOR.
[2016-11-23] MEDS: APIXABAN 2.5 MG TABLET PO SCH ×2 (11:38→16:21)
[2016-11-23 12:02] LABS: BASOPHILS # (AUTO) 0.1 /CMM (0.0-0.2); BASOPHILS % (AUTO) 0.8 % (0.0-2.0); EOSINOPHILS # (AUTO) 0.1 /CMM (0.0-0.7); HEMATOCRIT 42 % (33-45); HEMOGLOBIN 13.4 g/dL (11.5-14.8); LYMPHOCYTES # (AUTO) 0.8 /CMM (0.8-4.8); LYMPHOCYTES % (AUTO) 11.5 % (20.0-44.0); MEAN CORPUSCULAR HEMOGLOBIN 28 PG (26.0-33.0); MEAN CORPUSCULAR HGB CONC 32 g/dl (31.0-36.0); MEAN CORPUSCULAR VOLUME 87 fL (82-100); MONOCYTES # (AUTO) 0.4 /CMM (0.1-1.30); MONOCYTES % (AUTO) 6.5 % (2.0-12.0); NEUTROPHILS # (AUTO) 5.6 /CMM (1.8-8.9); NEUTROPHILS % (AUTO) 80.2 % (43.0-81.0); PLATELET COUNT (AUTO) 462 /CMM (150-450); RDW COEFFICIENT OF VARIATION 14.8 (11.5-15.0); RED BLOOD CELL COUNT(AUTO) 4.76 MIL/uL (4.0-5.2); WHITE BLOOD COUNT (AUTO) 6.9 K/uL (4.3-11.0)
[2016-11-23 12:17] LABS: ALANINE AMINOTRANSFERASE 24 U/L (12-78); ALBUMIN 2.2 g/dL (3.4-5.0); ALKALINE PHOSPHATASE 94 U/L (46-116); ASPARTATE AMINOTRANSFERASE 16 U/L (15-37); BILIRUBIN,TOTAL 0.2 mg/dL (0.2-1.0); CALCIUM, SERUM 8.1 mg/dL (8.5-10.1); CARBON DIOXIDE 30 mmol/L (21-32); CHLORIDE 109 mmol/L (98-107); CREATININE 0.9 mg/dL (0.6-1.3); GLUCOSE 95 mg/dL (74-106); POTASSIUM 4.4 mmol/L (3.5-5.1); SODIUM SERUM 144 mmol/L (136-145); UREA NITROGEN, BLOOD 16 mg/dL (7-18)
[2016-11-23 16:00] VITALS: BP 152/82
--- NOTE | 2016-11-23 17:00 | NUR ---
MS RN NOTES PATIENT BLADDER SCANED NOTED WITH 200ML OUT PUT. WILL CONTINUE TO MONITOR.
--- NOTE | 2016-11-23 18:02 | NUR ---
MS RN NOTES PATIENT IN BED RESTING NO SOB OR ACUTE DISTRESS NOTED, PATIENT IS CONFUSED. ALL DUE MEDICATIONS ADMINISTERED ALL NEEDS MET. PERIPHERAL IV INTACT PATENT ON LEFT AC . BED IN LOW LOCKED POSITION. CALL LIGHT WITHIN REACH. WILL ENDORSE CARE TO PM SHIFT.
--- NOTE | 2016-11-23 19:30 | NUR ---
RN OPENING NOTES RECEIVED REPORT FROM JULIO RN, MOISE. FOUND Pt AWAKE, RESTING IN BED WATCHING TV. NO S/S OF ACUTE DISTRESS OR SOB NOTED. NO C/O PAIN AT THIS TIME. FAMILY VISITING AT BEDSIDE. Pt IS A/OX1, CONFUSED, BUT IS VERBAL, AND ABLE TO MAKE NEEDS KNOWN. IV ACCESS ON LAC #20G, SL. SAFETY MEASURES IN PLACE. BED LOW, LOCKED, HOB ELEVATED, SIDE RAILS UP, CALL LIGHT AND BEDSIDE TABLE WITHIN REACH. WILL CONTINUE TO MONITOR Pt THROUGHOUT THE NIGHT FOR SAFETY.
[2016-11-23 20:00] VITALS: BP 140/76
[2016-11-23] MEDS: ATORVASTATIN 10 MG TABLET PO SCH (21:00)
[2016-11-23] MEDS: SENNOSIDES 8.6 MG TABLET PO SCH (21:00)
[2016-11-23] MEDS: POLYETHYLENE GLYCOL 3350 17 GM POWD.PACK PO SCH (21:00)
[2016-11-23] MEDS: MIRTAZAPINE 15 MG TABLET PO SCH (21:01)
--- NOTE | 2016-11-24 | NUR ---
RN NOTES BLADDER SCANNER SHOWED URINE RESIDUAL OF >477ML. STRAIGHT CATHED Pt WITH 500CC OF URINE OUTPUT.
--- NOTE | 2016-11-24 06:00 | NUR ---
RN NOTES URINE STRAIGHT CATH OUTPUT 250CC.
--- NOTE | 2016-11-24 06:35 | NUR ---
RN CLOSING NOTES NO SIGNIFICANT CHANGES IN Pt's CONDITION. Pt APPEARS TO BE STABLE. NO S/S OF ACUTE DISTRESS OR SOB NOTED DURING THE NIGHT. ALL NEEDS MET AND ATTENDED TO. SAFETY MEASURES IN PLACE. WILL ENDORSE TO DAYSHIFT RN FOR Pt's DEVIKA.
[2016-11-24 07:10] LABS: CALCIUM, SERUM 8.3 mg/dL (8.5-10.1); CARBON DIOXIDE 29 mmol/L (21-32); CHLORIDE 108 mmol/L (98-107); CREATININE 0.9 mg/dL (0.6-1.3); GLUCOSE 93 mg/dL (74-106); POTASSIUM 3.9 mmol/L (3.5-5.1); SODIUM SERUM 146 mmol/L (136-145); UREA NITROGEN, BLOOD 12 mg/dL (7-18)
--- NOTE | 2016-11-24 07:20 | NUR ---
RN NOTES RECEIVED PATIENT ASLEEP COMFORTABLY IN BED, EASILY AROUSABLE DURING CARE. RESPIRATIONS EVEN AND UNLABORED, DENIES ANY PAIN OR DISCOMFORT AT THIS TIME. PT IS CONFUSED, ABLE TO MAKE NEEDS KNOWN AND BE ORIENTED NEEDED. IV ACCESS PATENT AND INTACT NO REDNESS OR INFILTRATION NOTED. KEPT CLEAN DRY AND COMFORTABLE, CALL LIGHT WITHIN EASY REACH, WILL CONTINUE TO MONITOR
[2016-11-24 08:00] VITALS: BP 141/79
[2016-11-24] MEDS: APIXABAN 2.5 MG TABLET PO SCH ×2 (09:34→17:10)
[2016-11-24] MEDS: DOCUSATE SODIUM 100 MG CAPSULE PO SCH (09:34)
[2016-11-24] MEDS: VENLAFAXINE XR 37.5 MG CAP.SR.24H PO SCH (09:34)
[2016-11-24] MEDS: CHOLECALCIFEROL 1,000 UNIT TABLET (VIT D3) PO SCH (09:34)
[2016-11-24] MEDS: FAMOTIDINE (20 MG) 20 MG TABLET PO SCH (09:35)
[2016-11-24] MEDS: ACETAMINOPHEN 325 MG TABLET PO SCH (09:35)
[2016-11-24] MEDS: DILTIAZEM HCL CD 180 MG PO SCH (09:35)
[2016-11-24] MEDS: MEROPENEM 500 MG in IV NS 0.9% 50 ML IV SCH ×2 (09:46→21:56)
--- NOTE | 2016-11-24 13:30 | NUR ---
RN NOTES BLADDER SCAN DONE ORDERED, NOTED WITH RESIDUAL > 184ML, CONTINUE TO MONITOR AT THIS TIME, WILL DO BLADDER Q6HRS ORDERED Addendum: 11/24/16 at 1334 by ABISAI SHER RN Amended: Links added.
[2016-11-24 16:00] VITALS: BP 134/77
--- NOTE | 2016-11-24 17:00 | NUR ---
BLADDER SCAN DONE ORDERED Q 6HOURS. OVER 600 ML NOTED. FOLY CATH DONE. 500ML OUTPUT.
--- NOTE | 2016-11-24 17:07 | NUR ---
TRANSFER RN NOTE: RECEIVED PT ALERT/OX1. SPEAKS WELSH. ON ROOM AIR. INCONTINENT AND HAS DIAPER. ON REGULAR DIT. CAME IN FOR UTI. NO DISTRESS. NO SOB. NO PAIN NOTED. LAC IV WITH NO IV FLUIDS RUNNING. RESTING COMFORTABLY IN BED. CALL LIGHT WITHIN REACH.
--- NOTE | 2016-11-24 18:20 | NUR ---
RN NOTES PATIENT AWAKE COMFORTABLY IN BED. RESPIRATIONS EVEN AND UNLABORED, DENIES ANY PAIN OR DISCOMFORT AT THIS TIME. PT IS CONFUSED, ABLE TO MAKE NEEDS KNOWN AND BE ORIENTED NEEDED. IV ACCESS PATENT AND INTACT NO REDNESS OR INFILTRATION NOTED. KEPT CLEAN DRY AND COMFORTABLE, CALL LIGHT WITHIN EASY REACH, REPORT GIVEN TO ENDORSING RN FOR CONTINUITY OF CARE
--- NOTE | 2016-11-24 18:30 | NUR ---
MED SURGE RN: CLOSING NOTE PT A/OX1. INCONTINENT WITH DIAPER. BLADDER SCAN DONE. URINE OVER 500. STRAIGHT CATH DONE ORDERED. ON REGULAR DIET. NO N/V NOTED. NO PAIN NOTED. NO SOB NOTED. NO DISTRESS NOTED. ON CONTACT ISOLATION FOR ESBL. LAC #20 WITH NO IV FLUIDS RUNNING. RESTING COMFORTABLY IN BED. CALL LIGHT WITHIN REACH.
--- NOTE | 2016-11-24 19:35 | NUR ---
RN OPENING NOTES RECEIVED REPORT FROM [place] KIM RN. FOUND Pt ASLEEP, RESTING IN BED, EASILY AWAKENED. NO S/S OF ACUTE DISTRESS OR SOB NOTED. NO C/O PAIN AT THIS TIME. Pt IS A/OX1, CONFUSED, BUT IS VERBAL, AND ABLE TO MAKE NEEDS KNOWN. IV ACCESS ON LAC #20G, SL. SAFETY MEASURES IN PLACE. BED LOW, LOCKED, HOB ELEVATED, SIDE RAILS UPS, CALL LIGHT AND BEDSIDE TABLE WITHIN REACH. WILL CONTINUE TO MONITOR Pt THROUGHOUT THE NIGHT FOR SAFETY.
[2016-11-24 20:00] VITALS: BP 126/95
[2016-11-24] MEDS: POLYETHYLENE GLYCOL 3350 17 GM POWD.PACK PO SCH (22:13)
[2016-11-24] MEDS: ATORVASTATIN 10 MG TABLET PO SCH (22:13)
[2016-11-24] MEDS: SENNOSIDES 8.6 MG TABLET PO SCH (22:13)
[2016-11-24] MEDS: MIRTAZAPINE 15 MG TABLET PO SCH (22:14)
--- NOTE | 2016-11-25 | NUR ---
RN NOTES BLADDER SCANNER URINE RESIDUAL READING >254ML. NO STRAIGHT CATH NEEDED.
--- NOTE | 2016-11-25 06:00 | NUR ---
RN NOTES BLADDER SCANNER URINE RESIDUAL READING >467ML. STRAIGHT CATH DONE. 700CC URINE OUTPUT.
--- NOTE | 2016-11-25 06:36 | NUR ---
RN CLOSING NOTES NO SIGNIFICANT CHANGES NOTED DURING THE NIGHT. NO S/S OF ACUTE DISTRESS OR SOB NOTED DURING THE NIGHT. ALL NEEDS MET AND ATTENDED TO. SAFETY MEASURES IN PLACE. WILL ENDORSE TO DAYSHIFT RN FOR Pt's DEVIKA.
--- NOTE | 2016-11-25 07:30 | NUR ---
RN OPENING NOTES RECEIVED PT. IN BED A&OX1 AND CONFUSED. BREATHING ON ROOM AIR UNLABORED. NO S/S OF ACUTE DISTRESS, NO S/S OF SOB. IV FLUIDS NEAR BEDSIDE. BED IS IN LOWEST POSITION, 2 SIDE RAILS UP, AND ALL NEEDS ATTENDED TO. CALL LIGHT IS WITHIN REACH.
[2016-11-25 07:32] LABS: CALCIUM, SERUM 8.2 mg/dL (8.5-10.1); CARBON DIOXIDE 28 mmol/L (21-32); CHLORIDE 111 mmol/L (98-107); CREATININE 0.9 mg/dL (0.6-1.3); GLUCOSE 90 mg/dL (74-106); POTASSIUM 4.4 mmol/L (3.5-5.1); SODIUM SERUM 147 mmol/L (136-145); UREA NITROGEN, BLOOD 14 mg/dL (7-18)
[2016-11-25 08:00] VITALS: BP 144/78
[2016-11-25] MEDS: DOCUSATE SODIUM 100 MG CAPSULE PO SCH (09:00)
[2016-11-25] MEDS: MEROPENEM 500 MG in IV NS 0.9% 50 ML IV SCH (09:27)
[2016-11-25] MEDS: DILTIAZEM HCL CD 180 MG PO SCH (09:42)
[2016-11-25] MEDS: CHOLECALCIFEROL 1,000 UNIT TABLET (VIT D3) PO SCH (09:42)
[2016-11-25] MEDS: FAMOTIDINE (20 MG) 20 MG TABLET PO SCH (09:42)
[2016-11-25] MEDS: ACETAMINOPHEN 325 MG TABLET PO SCH (09:43)
[2016-11-25] MEDS: VENLAFAXINE XR 37.5 MG CAP.SR.24H PO SCH (09:43)
[2016-11-25] MEDS: APIXABAN 2.5 MG TABLET PO SCH ×2 (09:49→17:46)
--- NOTE | 2016-11-25 13:28 | NUR ---
RN NOTES PER BLADDER SCAN 123 ML RETAINED.
[2016-11-25 16:00] VITALS: BP 128/71
--- NOTE | 2016-11-25 16:10 | NUR ---
RN NOTES NEW MD ORDERS ORDERED PHYSICAL THERAPY EVALUATION FOR WEAKNESS, AND STOP ANTIBIOTICS PER DR. AGEE NEW ORDERS.
--- NOTE | 2016-11-25 19:00 | NUR ---
RN NOTES BLADDER SCAN HAS 183 ML OF URINE RETENTION.
--- NOTE | 2016-11-25 19:50 | NUR ---
MS RN INITIAL NOTES PT IS SLEEPING, EASILY AROUSED. DAUGHTER AT BEDSIDE, DAUGHTER IS CONCERNED WITH PLAN OF CARE. NEEDS ADDRESSED AND WILL ENDORSE TO DAYSHIFT. NO SIGNS OF SOB OR DISTRESS. BLADDER SCANS DUE Q6H. BED IS IN LOW AND LOCKED POSITION , WILL CONTINUE TO MONITOR.
--- NOTE | 2016-11-25 19:55 | NUR ---
RN CLOSING NOTES PT. IN BED WATCHING TV, A&OX1, CONFUSED. BREATHING ON ROOM AIR UNLABORED OXYGEN SATURATION AT 95%. NO S/S OF ACUTE DISTRESS, NO S/S OF SOB. IV FLUIDS NEAR BEDSIDE. BED IS IN LOWEST POSITION, 2 SIDE RAILS UP, AND ALL NEEDS ATTENDED TO. CALL LIGHT IS WITHIN REACH.
[2016-11-25 20:00] VITALS: BP 123/85
[2016-11-25] MEDS: SENNOSIDES 8.6 MG TABLET PO SCH (21:20)
[2016-11-25] MEDS: ATORVASTATIN 10 MG TABLET PO SCH (21:20)
[2016-11-25] MEDS: MIRTAZAPINE 15 MG TABLET PO SCH (21:20)
[2016-11-25] MEDS: POLYETHYLENE GLYCOL 3350 17 GM POWD.PACK PO SCH (21:33)
--- NOTE | 2016-11-26 06:46 | NUR ---
MS RN CLOSING NOTES PT IS IN BED SLEEPING, EASILY AROUSED. NO SIGNS OF SOB OR DISTRESS. PT DID NOT HAVE ANY URINE OUTPUT THROUGHOUT MY SHIFT. LAST BLADDER SCAN WAS 302. WILL ENDORSE TO DAY SHIFT.
--- NOTE | 2016-11-26 07:30 | NUR ---
RN OPENING NOTES RECEIVED PT. IN BED A&OX2-3, EPISODE OF CONFUSION WITH AGE. BREATHING ON ROOM AIR UNLABORED. NO S/S OF ACUTE DISTRESS, NO S/S OF SOB. LEFT FOREARM IV SITE INTACT. BED IS IN LOWEST POSITION, BED ALARM ON, 2 SIDE RAILS UP, AND ALL NEEDS ATTENDED TO. CALL LIGHT IS WITHIN REACH.
[2016-11-26 08:00] VITALS: BP 120/76
[2016-11-26 08:00] LABS: CALCIUM, SERUM 8.4 mg/dL (8.5-10.1); CARBON DIOXIDE 29 mmol/L (21-32); CHLORIDE 111 mmol/L (98-107); GLUCOSE 84 mg/dL (74-106); POTASSIUM 4.9 mmol/L (3.5-5.1); SODIUM SERUM 147 mmol/L (136-145); UREA NITROGEN, BLOOD 19 mg/dL (7-18)
[2016-11-26] MEDS: DOCUSATE SODIUM 100 MG CAPSULE PO SCH (09:00)
[2016-11-26] MEDS: APIXABAN 2.5 MG TABLET PO SCH ×2 (10:23→17:22)
[2016-11-26] MEDS: CHOLECALCIFEROL 1,000 UNIT TABLET (VIT D3) PO SCH (10:24)
[2016-11-26] MEDS: ACETAMINOPHEN 325 MG TABLET PO SCH (10:24)
[2016-11-26] MEDS: VENLAFAXINE XR 37.5 MG CAP.SR.24H PO SCH (10:24)
[2016-11-26] MEDS: DILTIAZEM HCL CD 180 MG PO SCH (10:25)
[2016-11-26] MEDS: FAMOTIDINE (20 MG) 20 MG TABLET PO SCH (10:25)
--- NOTE | 2016-11-26 10:37 | NUR ---
RN NOTES PT. UNABLE TO SWALLOW COLACE CAPSULE WHOLE.
--- NOTE | 2016-11-26 13:51 | NUR ---
RN NOTES PT. HAD A BLADDER SCAN SHOWING URINE RETENTION 554 CC. PERFORMED A STRAIGHT CATHETERIZATIONS WITH 700 CC OF CLEAR AND YELLOW URINE OUTPUT.
[2016-11-26 16:00] VITALS: BP 147/90
--- NOTE | 2016-11-26 16:30 | NUR ---
RN NOTES PT. HAD ONE LARGE, BROWN, LOOSE BOWEL MOVEMENT.
[2016-11-26 16:44] VITALS: BP 147/90
--- NOTE | 2016-11-26 17:37 | NUR ---
RN NOTES FLEET ENEMA WAS ADMINISTERED.
--- NOTE | 2016-11-26 19:29 | NUR ---
RN NOTES BURGESS CATHETER WAS INSERTED WITHOUT COMPLICATIONS. PT. HAS CLEAR AND YELLOW URINE OUTPUT, 170 CC OUTPUT IN BURGESS CATHETER.
--- NOTE | 2016-11-26 20:25 | NUR ---
PIE BAKER NOTES PT. LEFT IN MEDICALLY STABLE CONDITION BY AMBULANCE TO [facility] IN [place]. PT. HAS BURGESS CATHETER WITH 170 CC OF CLEAR AND YELLOW URINE OUTPUT. PT. IS BATHING ON OXYGEN 2L/MIN, WEARING A NASAL CANNULA. ID BAND AND IV WAS REMOVED WITHOUT COMPLICATIONS. DISCHARGE PAPERS WERE GIVEN. PICTURE WAS TAKEN OF PT.'S INNER RIGHT THIGH SKIN LESION, AND PLACED IN CHART. CALLED PT.'S NIECE VERONA TO NOTIFY THAT HER AUNT IS BEING TAKEN TO [facility].
--- NOTE | 2016-11-26 20:29 | NUR ---
VASCULAR RADIOLOGIST NOTES PT. BELONGINGS LIST WAS CHECKED AND SIGNED WITH NURSE.
== END 2016-11-26 20:30 | DRG 871 ==
LOC: ER 10:53 → MED 13:10
PROVIDERS: ADMIT Internal Medicine Hematology & Oncology; ATTEND Internal Medicine Hematology & Oncology
DX: A41.9 Sepsis, unspecified organism (principal); G93.40 Encephalopathy, unspecified; R64 Cachexia; I48.0 Paroxysmal atrial fibrillation; N39.0 Urinary tract infection, site not specified; Z68.1 Body mass index [BMI] 19.9 or less, adult; G30.9 Alzheimer's disease, unspecified; F02.80 Dementia in other diseases classified elsewhere, unspecified severity, without behavioral disturbance, psychotic disturbance, mood disturbance, and anxiety; E78.5 Hyperlipidemia, unspecified; K59.00 Constipation, unspecified; F32.9 Major depressive disorder, single episode, unspecified; I25.10 Atherosclerotic heart disease of native coronary artery without angina pectoris; M19.90 Unspecified osteoarthritis, unspecified site; Z79.01 Long term (current) use of anticoagulants; R33.9 Retention of urine, unspecified; R91.8 Other nonspecific abnormal finding of lung field; K44.9 Diaphragmatic hernia without obstruction or gangrene; B96.20 Unspecified Escherichia coli [E. coli] as the cause of diseases classified elsewhere; R93.5 Abnormal findings on diagnostic imaging of other abdominal regions, including retroperitoneum; R53.1 Weakness; I10 Essential (primary) hypertension
CPT/HCPCS: 36415; 71010-TC; 80048-TC; 80053-TC; 80076-TC; 81000-TC; 83605-TC; 84484-TC; 85025-TC; 85730-TC; 87040-TC; 87081-TC; 87086-TC; 87186-TC; A4216; A4606; J0696; J2185; J3370; J7060; Z7610